=== PATIENT | male | born 1960 | race Two or more races ===

== ENCOUNTER 2019-01-15 21:19 | Emergency (ER) | payer MEDICAID ==
[~2019-01-15] VITALS: Ht 175.3 cm; Wt 90.7 kg
[2019-01-16 05:41] VITALS: BP 130/77
== END 2019-01-16 05:41 | disposition home or self-care (01) ==
LOC: EDBD 21:21 → ER 21:21
DX: T51.91XA Toxic effect of unspecified alcohol, accidental (unintentional), initial encounter (principal); Y92.89 Other specified places as the place of occurrence of the external cause
CPT/HCPCS: 82962-TC

== ENCOUNTER 2019-12-14 04:52 | Emergency (ER) | payer MEDICAID ==
[~2019-12-14] VITALS: Ht 175.3 cm; Wt 90.7 kg
--- NOTE | 2019-12-14 05:00 | NUR ---
PT BIBRA FROM HOME S/P SEIZURE. PER RA, PT FOUND IN BATHTUB. DENIES HEAD TRAUMA, NOTED ORAL TRAUMA. PT AWAKE, [id number]. VITAL SIGNS STABLE. RESPIRATIONS EVEN AND UNLABORED. SEIZURE PRECAUTIONS INITIATED. PT PLACED IN GOWN AND ON CONTINUOUS [place] [employer]PERATOR AND PULSE OX. WILL CONTINUE TO MONITOR
--- NOTE | 2019-12-14 05:05 | NUR ---
PER PT'S , PT HAS BEEN NONCOMPLIANT WITH ALEJANDRO X3 MONTHS, DR. NAYAK AWARE
--- NOTE | 2019-12-14 05:15 | NUR ---
PT ARRIVED TO [facility] ER WITH L FOREARM 18G. ATTEMPTED TO FLUSH, INFILTRATED. IV REMOVED, CATHETER INTACT AND SITE BENIGN. PRESSURE AND DRESSING APPLIED TO SITE. INITIATED IV R FOREARM 18G, LABS DRAWN FROM SITE. BASKET BRAIDER AT BEDSIDE FOR COLLECTION. IV INTACT AND PATENT, PLACED ON SALINE LOCK
--- NOTE | 2019-12-14 05:18 | NUR ---
PT UNABLE TO PROVIDE URINE SAMPLE AT THIS TIME. MD AYALA
[2019-12-14 05:21] LABS: BASOPHILS % (AUTO) 0.7 % (0.0-2.0); EOSINOPHILS % (AUTO) 0.7 % (0.0-6.0); HEMATOCRIT 40 % (39-51); HEMOGLOBIN 13.5 g/dL (13.5-17.5); LYMPHOCYTES # (AUTO) 2.1 /CMM (0.8-4.8); LYMPHOCYTES % (AUTO) 33.3 % (20.0-44.0); MEAN CORPUSCULAR HGB CONC 34 g/dl (31.0-36.0); MEAN CORPUSCULAR VOLUME 93 fL (80-96); MONOCYTES # (AUTO) 0.6 /CMM (0.1-1.30); MONOCYTES % (AUTO) 9.3 % (2.0-12.0); NEUTROPHILS # (AUTO) 3.5 /CMM (1.8-8.9); PLATELET COUNT (AUTO) 246 /CMM (150-450); RED BLOOD CELL COUNT(AUTO) 4.28 MIL/uL (4.5-6.0); WHITE BLOOD COUNT (AUTO) 6.3 K/uL (4.3-11.0)
[2019-12-14 05:34] LABS: ALANINE AMINOTRANSFERASE 39 U/L (12-78); ALBUMIN 3.6 g/dL (3.4-5.0); ALKALINE PHOSPHATASE 98 U/L (46-116); ASPARTATE AMINOTRANSFERASE 35 U/L (15-37); BILIRUBIN,DIRECT 0.1 mg/dL (0.0-0.2); BILIRUBIN,TOTAL 0.5 mg/dL (0.2-1.0); CALCIUM, SERUM 8.5 mg/dL (8.5-10.1); CARBON DIOXIDE 27 mmol/L (21-32); CHLORIDE 99 mmol/L (98-107); CREATININE 0.8 mg/dL (0.6-1.3); GLUCOSE 160 mg/dL (74-106); POTASSIUM 3.5 mmol/L (3.5-5.1); SODIUM SERUM 136 mmol/L (136-145); TOTAL PROTEIN, SERUM 7.1 g/dL (6.4-8.2); UREA NITROGEN, BLOOD 16 mg/dL (7-18)
[2019-12-14 05:35] LABS: ALCOHOL, BLOOD < 3 mg/dL (0-0)
[2019-12-14] MEDS ORDERED: LEVETIRACETAM SOL (5 ML) 100 MG/ML UDC PO SCH (06:00)
[2019-12-14] MEDS ORDERED: LEVETIRACETAM (250 MG) 250 MG TABLET PO ONE (06:00)
--- NOTE | 2019-12-14 06:13 | NUR ---
Patient discharged to home in stable condition. Written and verbal after care instructions given. Patient verbalizes understanding of instruction.IV removed. Catheter intact and site benign. Pressure and 4x4 applied to site. No bleeding noted.Pt ambulatory with a steady gait
[2019-12-14 06:14] VITALS: BP 116/81
== END 2019-12-14 06:15 | disposition home or self-care (01) ==
LOC: ER 04:56
DX: G40.909 Epilepsy, unspecified, not intractable, without status epilepticus (principal); R41.0 Disorientation, unspecified; Z91.14 Patient's other noncompliance with medication regimen
CPT/HCPCS: 36415; 70450-TC; 71045-TC; 80048-TC; 80076-TC; 82962-TC; 85025-TC; G0480